=== PATIENT | male | born 1965 | race Caucasian/White ===

== ENCOUNTER 2018-09-03 14:02 | Emergency (ER) | payer OTHER ==
[2018-09-03] MEDS: LIDOCAINE 2% (MDV) 20 ML INJ INJ (16:46)
== END 2018-09-03 16:59 | disposition home or self-care (01) ==
LOC: FTE 14:02
DX: S61.213A Laceration without foreign body of left middle finger without damage to nail, initial encounter (principal); W26.8XXA Contact with other sharp object(s), not elsewhere classified, initial encounter; Y92.9 Unspecified place or not applicable
CPT/HCPCS: 99283; Z7502

== ENCOUNTER 2018-09-20 10:13 | Emergency (ER) | payer OTHER | END 2018-09-20 11:14 | disposition home or self-care (01) | LOC: FTE 10:13 | DX: Z48.02 Encounter for removal of sutures (principal) | CPT/HCPCS: 99281; Z7502 ==

== ENCOUNTER 2019-02-16 09:39 | Emergency (ER) | payer SELFPAY, OTHER | END 2019-02-16 10:08 | disposition left against medical advice (07) | LOC: E/R 09:39 | DX: Z53.21 Procedure and treatment not carried out due to patient leaving prior to being seen by health care provider (principal) | CPT/HCPCS: 93005 ==